=== PATIENT | female | born 1950 | race Caucasian/White ===

== ENCOUNTER 2016-07-19 15:59 | Outpatient (CLI) | payer MEDICARE, OTHER | END 2016-07-19 16:00 | disposition EMS.NT | DX: Z03.89 Encounter for observation for other suspected diseases and conditions ruled out (principal) ==

== ENCOUNTER 2016-09-08 23:24 | Outpatient (CLI) | payer MEDICARE, OTHER | END 2016-09-08 23:25 | disposition critical access hospital (66) | DX: R53.1 Weakness (principal) | CPT/HCPCS: A0425; A0429 ==

== ENCOUNTER 2016-09-08 23:32 | Inpatient (IN) | payer MEDICARE, OTHER ==
--- NOTE | 2016-09-08 23:52 | ED Physician Documentation ---
PD HPI FOCAL NEURO - Stated complaint Stated Complaint: LEG WEAKNESS - Chief complaint Chief Complaint: General - History obtained from History obtained from: Patient, EMS - History of Present Illness Timing - onset: Other (started at about noon today) Timing - duration: Hours (11) Timing - details: Waxing and waning Severity of deficit: Mild Weakness: No: Face, Arm, Hand, Leg, Foot, Right, Left Numbness: No: Face, Arm, Hand, Leg, Foot, Right, Left Associated symptoms: No: Headache, Nausea / vomiting, Seizure, Syncope, Fall, Head injury, Chest pain, Neck pain, Back pain, Fever Baseline status: positive: Cane, Walker Similar symptoms before: Diagnosis (states has had 2 strokes in the past) Recently seen: Not recently seen - Additional information Additional information: Patient and family state that she has had difficulty with speech all day long. Also had difficulty with swallowing earlier today. similar symptoms to prior stroke. Review of Systems Ten Systems: 10 systems reviewed and negative Constitutional: denies: Fever, Chills Throat: denies: Sore throat Cardiac: denies: Chest pain / pressure Respiratory: denies: Cough, Wheezing GI: denies: Abdominal Pain, Nausea, Vomiting, Diarrhea Skin: denies: Rash Musculoskeletal: denies: Neck pain, Back pain Neurologic: denies: Headache PD PAST MEDICAL HISTORY - Past Medical History Past Medical History: Yes Neuro: CVA - Present Medications Home Medications: Ambulatory Orders Medication Instructions Recorded Confirmed Amlodipine Besylate 5 mg ORAL DAILY 09/09/16 09/09/16 Atorvastatin [Lipitor] 80 mg ORAL DAILY 09/09/16 09/09/16 Clopidogrel [Plavix] 75 mg PO ONCE 09/09/16 09/09/16 Fexofenadine HCl 180 mg ORAL DAILY 09/09/16 09/09/16 Fluticasone/Salmeterol [Advair 2 puffs IN BID 09/09/16 09/09/16 250-50 Diskus] Losartan [Cozaar] 100 mg ORAL DAILY 09/09/16 09/09/16 Oxybutynin [Ditropan] 5 mg PO BID 09/09/16 09/09/16 traMADol [Ultram] 50 mg ORAL PRN PRN 09/09/16 09/09/16 - Allergies Allergies/Adverse Reactions: Allergies Allergy/AdvReac Type Severity Reaction Status Date / Time Unable to Assess Allergy Verified 09/08/16 23:43 - Living Situation Living Situation: reports: With family Living Arrangement: reports: At home - Social History Does the pt have substance abuse?: No - Family History Family history: reports: Non contributory PD ED PE NORMAL - Vitals Vital signs reviewed: Yes - General General: Alert and oriented X 3, No acute distress, Well developed/nourished - HEENT HEENT: PERRL, Moist mucous membranes, Pharynx benign - Neck Neck: Supple, no meningeal sign - Cardiac Cardiac: RRR, Strong equal pulses - Respiratory Respiratory: No respiratory distress, Clear bilaterally - Abdomen Abdomen: Soft, Non tender, Non distended - Back Back: No spinal TTP - Derm Derm: Warm and dry - Extremities Extremities: No edema - Neuro Neuro: Alert and oriented X 3, home based assistant 2-12 intact, No motor deficit, No sensory deficit, Normal speech - Psych Psych: Normal mood, Normal affect NIHSS - Time Time: 23:40 - Level of Consciousness Level of consciousness: (0) Alert, Keenly responsive LOC Questions: (0) Answers both Q's correct LOC Commands: (0) Performs both correctly - Gaze Best Gaze: (0) Normal - Visual Visual: (0) No loss - Facial Palsy Facial Palsy: (0) Normal, symmetrical movement - Motor Arms (both separate) Motor Arm (right): (0) No drift Motor Arm (left): (0) No drift - Motor Legs (both separate) Motor Leg (right): (0) No drift Motor Leg (left): (0) No drift - Limb Ataxia Limb Ataxia: (0) Absent - Sensory Sensory: (0) Normal - Best Language Best Language: (0) No aphasia - Dysarthria Dysarthria: (0) Normal - Extinction and Inattention (formally neg Extinction and inattention: (0) No abnormality - Total Score/Results Total Score/Result: 0 Results - Vitals Vitals: Vital Signs - 24 hr 09/08/16 09/09/16 23:39 01:03 Temperature 36.3 C L Heart Rate 76 70 Respiratory 20 18 Rate Blood Pressure 157/80 H 117/61 O2 Saturation 96 95 Oxygen O2 Source Room air - EKG (time done) 2357 Rate: Rate (enter#) (75) Rhythm: NSR [place]: Normal Ischemia: Normal ST segments, Q waves (V1-2) Computer interpretation: Agree with computer - Labs Labs: Laboratory Tests 09/09/16 09/09/16 09/09/16 00:31 00:31 00:45 WBC 9.3 RBC 4.91 Hgb 13.7 Hct 41.5 MCV 84.4 MCH 28.0 MCHC 33.1 RDW 16.4 H Plt Count 208 MPV 8.3 Neut # 6.3 Lymph # 1.4 L [place] # 1.2 H Eos # 0.3 Baso # 0.1 Absolute Nucleated RBC 0.00 Nucleated RBCs 0.0 Sodium 135 Potassium 4.1 Chloride 96 L Carbon Dioxide 29 Anion Gap 10.0 BUN 26 H Creatinine 2.1 H Estimated GFR (MDRD) 23 L Glucose 115 H Calcium 9.0 Total Bilirubin 0.5 AST 43 H ALT 33 Alkaline Phosphatase 101 Total Protein 7.5 Albumin 3.7 Globulin 3.8 Albumin/Globulin Ratio 1.0 Lipase 17 L Urine Color YELLOW Urine Clarity SL. CLOUDY Urine pH 5.0 Ur Specific [place] >=1.030 H Urine Protein TRACE Urine Glucose (UA) NEGATIVE Urine Ketones TRACE Urine Occult Blood LARGE H Urine Nitrite NEGATIVE Urine Bilirubin NEGATIVE Urine Urobilinogen 2 H Ur Leukocyte Esterase TRACE H Urine RBC 0-5 Urine WBC 6-10 H Ur Squamous Epith Cells RARE Squamous Urine Bacteria Moderate H Urine Casts 6-10 Hyaline Casts Ur Microscopic Review INDICATED Urine Culture Comments INDICATED - Rads (name of study) head CT Radiology: Prelim report reviewed, EMP read contemporaneously, See rad report ( Old infarcts involving the right basal ganglia, right anterior thalamus and genu of the right internal capsule. No acute intracranial process identified) PD MEDICAL DECISION MAKING - ED course Complexity details: reviewed results, re-evaluated patient, considered differential, d/w patient, d/w family ED course: Patient is a 66-year-old female who presents to the emergency department with recurrent stroke symptoms. Possible that this is related to her urinary tract infection and acute renal insufficiency. Given IV fluids and IV antibiotics. We will place the patient in observation with the hospitalist for further evaluation and care. Will likely need a recurrent stroke workup as well. Discussed the case with Dr. Rivers, hospitalist who accepts. This document was made in part using voice recognition software. While efforts are made to proofread this document, sound alike and grammatical errors may occur. Departure - Departure Disposition: ED Place in Observation Clinical Impression: Stroke Qualifiers: CVA mechanism: unspecified Qualified Code(s): I63.9 - Cerebral infarction, unspecified UTI (urinary tract infection) Qualifiers: Urinary tract infection type: acute cystitis Hematuria presence: without hematuria Qualified Code(s): N30.00 - Acute cystitis without hematuria Acute renal failure Qualifiers: Acute renal failure type: unspecified Qualified Code(s): N17.9 - Acute kidney failure, unspecified Condition: Stable
--- NOTE | 2016-09-09 00:17 | CT Preliminary Report ---
Exam: CT Head W/O Impression: Old infarcts involving the right basal ganglia, right anterior thalamus and genu of the right interna l capsule. No acute intracranial process identified. [facility] SITE ID: [id number]
--- NOTE | 2016-09-09 00:19 | CT Report ---
EXAM: CT HEAD EXAM DATE: 09/09/2016 12:08 AM. CLINICAL HISTORY: Aphasia COMPARISON: 04/11/2010. TECHNIQUE: Multiaxial CT images were obtained from the foramen magnum to the vertex. IV contrast: Non e. Reformats: Coronal. In accordance with CT protocol optimization, one or more of the following dose reduction techniques w ere utilized for this exam: automated exposure control, adjustment of mA and/or KV based on patient s ize, or use of iterative reconstructive technique. FINDINGS: Old lacunar infarct involves the right anterior thalamus and genu of the internal capsule. Old small infarct right putamen. Findings are new since 2009. Prominent nonspecific white matter hypodensity, likely small vessel ischemia. No hemorrhage, extracerebral fluid collection or hydrocephalus. No CT evidence of recent infarct. Skull base and bone windows are unremarkable. Impression: Old infarcts involving the right basal ganglia, right anterior thalamus and genu of the right interna l capsule. No acute intracranial process identified. [facility] Referring Provider Line: [phone] SITE ID: [id number]
[2016-09-09 00:37] LABS: BASOPHILS # (AUTO) 0.1 10^3/uL (0.0-0.1); BASOPHILS % (AUTO) 0.6 %; EOSINOPHILS # (AUTO) 0.3 10^3/uL (0.0-0.7); EOSINOPHILS % (AUTO) 3.5 %; HCT - HEMATOCRIT 41.5 % (37.0-47.0); HGB - HEMOGLOBIN 13.7 g/dL (12.0-16.0); LYMPHOCYTES # (AUTO) 1.4 10^3/uL (1.5-3.5); LYMPHOCYTES % (AUTO) 15.3 %; MEAN CORPUSCULAR HGB CONC 33.1 g/dL (32.0-36.0); MEAN CORPUSCULAR VOLUME 84.4 fL (81.0-99.0); MEAN PLATELET VOLUME 8.3 fL (7.9-10.8); MONOCYTES # (AUTO) 1.2 10^3/uL (0.0-1.0); MONOCYTES % (AUTO) 12.7 %; NEUTROPHILS # (AUTO) 6.3 10^3/uL (1.5-6.6); NEUTROPHILS % (AUTO) 67.9 %; RED BLOOD COUNT 4.91 10^6/uL (4.20-5.40); RED CELL DISTRIBUTION WIDTH 16.4 % (12.0-15.0); UNCORRECTED WHITE BLOOD COUNT 9.3 x10^3/uL; WHITE BLOOD COUNT 9.3 x10^3/uL (4.8-10.8)
[2016-09-09 00:49] LABS: BILIRUBIN,TOTAL 0.5 mg/dL (0.2-1.0); CREATININE 2.1 mg/dL (0.4-1.0); POTASSIUM 4.1 mmol/L (3.5-5.0); TOTAL PROTEIN 7.5 g/dL (6.7-8.2)
[2016-09-09] MEDS ORDERED: SODIUM CHLORIDE 0.9% 1,000 ML IV ONE ×2 (00:56)
[2016-09-09 01:03] LABS: BILIRUBIN,URINE NEGATIVE (NEGATIVE); UA w/ MICROSCOPIC CHARGE YES
[2016-09-09 01:04] LABS: UR CULTURE IF IND INDICATED
[2016-09-09] MEDS ORDERED: cefTRIAXone 1 GM in SODIUM CHLORIDE 0.9% MINIBAG 100 ML IV STA (01:23)
[2016-09-09] MEDS ORDERED: cefTRIAXone 1 GM VIAL ONE (01:41)
[2016-09-09] MEDS ORDERED: SODIUM CHLORIDE FLUSH 0.9% 10 ML SYRINGE IVP PRN (01:43)
[2016-09-09] MEDS ORDERED: ACETAMINOPHEN 325 MG TABLET PO PRN (01:43)
[2016-09-09] MEDS ORDERED: traMADol 50 MG TABLET PO PRN (01:52)
[2016-09-09] MEDS ORDERED: CLOPIDOGREL 75 MG TABLET PO SCH (02:00)
[2016-09-09] MEDS ORDERED: SALMETEROL IN SCH (02:00)
[2016-09-09] MEDS ORDERED: FLUTICASONE IN SCH (02:00)
--- NOTE | 2016-09-09 03:48 | Ultrasound Preliminary Report ---
Exam: US Carotid Doppler Complete IMPRESSION: 1. Mild bilateral carotid plaquing with no definite stenosis. Images are significantly degraded due t o body habitus and motion artifact. Validated velocity measurements with angiographic measurements and velocity criteria are extrapolated from diameter data as defined by the Society of Radiologists in Ultrasound Consensus Conference Radi ology 2003; 229;340-346. [facility] SITE ID: [id number]
[2016-09-09] MEDS: SODIUM CHLORIDE 0.9% 1,000 ML IV SCH ×2 (03:58→14:13)
[2016-09-09] MEDS: HEPARIN 5,000 UNIT/ML VIAL SUBQ SCH ×3 (03:58→20:33)
--- NOTE | 2016-09-09 04:03 | Ultrasound Report ---
EXAM: CAROTID DOPPLER ULTRASOUND EXAM DATE: 09/09/2016 03:37 AM. CLINICAL HISTORY: CVA. Hypertension and elevated cholesterol. COMPARISON: 04/11/2010. TECHNIQUE: Real-time sonographic vascular imaging was performed by the doctor of audiology through the JW Playerti d arterial system with a linear transducer utilizing color-flow, Doppler flow and spectral analysis. Multiple loss prevention representative static images were saved for review. FINDINGS: Images are degraded due to body habitus and motion artifact. There is mild bilateral carotid plaquing . No hemodynamically significant stenosis is seen. Antegrade flow is seen in both vertebral arteries. Right: RCCA Prox: PSV 70.9 cm/sec. RCCA Dist: PSV 79.0 cm/sec, EDV 11.8 cm/sec. RECA: PSV 34.2 cm/sec. R Bulb: PSV 64 cm/sec, EDV 25.2 cm/sec, ICA/CCA ratio 1.2. KRISTI Prox: PSV 80.1 cm/sec, EDV 23.5 cm/sec, ICA/CCA ratio 1.0. KRISTI Mid: PSV 63.9 cm/sec, EDV 8.9 cm/sec, ICA/CCA ratio 0.8. KRISTI Dist: PSV 71.7 cm/sec, EDV 19.0 cm/sec, ICA/CCA ratio 0.9. RVA: PSV 66 cm/sec. RVA flow direction: Antegrade. Left: LCCA Prox: PSV 77.3 cm/sec. LCCA Dist: PSV 105.3 cm/sec, EDV 20.2 cm/sec. LECA: PSV 71.8 cm/sec. L Bulb: PSV 96 cm/sec, EDV 20.3 cm/sec, ICA/CCA ratio 0.9. LICA Prox: PSV 65.6 cm/sec, EDV 7.7 cm/sec, ICA/CCA ratio 0.6. LICA Mid: PSV 67.2 cm/sec, EDV 17 cm/sec, ICA/CCA ratio 0.6. LICA Dist: PSV 45.5 cm/sec, EDV 19.3 cm/sec, ICA/CCA ratio 0.4. LVA: PSV 42 cm/sec. LVA flow direction: Antegrade. Other: None. IMPRESSION: 1. Mild bilateral carotid plaquing with no definite stenosis. Images are significantly degraded due t o body habitus and motion artifact. Validated velocity measurements with angiographic measurements and velocity criteria are extrapolated from diameter data as defined by the Society of Radiologists in Ultrasound Consensus Conference Radi ology 2003; 229;340-346. [facility] Referring Provider Line: [phone] SITE ID: [id number]
--- NOTE | 2016-09-09 04:32 | HISTORY & PHYSICAL EXAMINATION ---
DATE OF ADMISSION: 09/09/2016 PRIMARY CARE PROVIDER: Dr. Cy Abdalla. CHIEF COMPLAINT: Slurred speech, word finding difficulties. HISTORY OF PRESENT ILLNESS: This is a 66-year-old female, who lives with her , who has had pre vious strokes in the past in 2009, 01/2015. The last one she had an expressive aphasia with it. Accor ding to daughter and the patient, she completely recovered from this and today woke up with having so me problems with slurred speech, feeling some generalized weakness along with some word finding diffi culties. Is still present when I am examining the patient. She also was found to have a urinary tract infection and acute renal failure with GFR being 23, BUN 26, creatinine 2.1. In looking at her past record, previous GFR in 03/2016 was 71. The patient does not recall any change in medications. Of not e, she has been on Plavix 75 mg p.o. daily. EKG in the emergency room is sinus at a rate of 75, poor R-wave progression across the precordium is noted. CT of head without contrast reveals old infarcts i nvolving the right basal ganglia, right anterior thalamic, and genu of the right internal capsule. No acute intracranial process identified today. PAST MEDICAL HISTORY: History of CVA x2 in 2009 and 01/2015, history of hypertension, remote history of smoking, quit in 1968, history of bilateral total knee replacements, history of asthma, history of allergies, history of hyperlipidemia. MEDICATIONS UPON ADMISSION 1. Amlodipine 5 mg p.o. daily. 2. Atorvastatin 80 mg p.o. daily. 3. Plavix 75 mg p.o. daily. 4. Fexofenadine 180 mg p.o. daily. 5. Advair 250/50 two puffs inhaled b.i.d. 6. Cozaar 100 mg p.o. daily. 7. Oxybutynin 5 mg p.o. b.i.d. 8. Tramadol 50 mg p.o. q.6h. p.r.n. pain. ALLERGIES: NO KNOWN DRUG ALLERGIES. SOCIAL HISTORY: Lives with . Smoking, quit in 1968. Alcohol, 3-4 drinks per month. FAMILY MEDICAL HISTORY: Mother with a history of colon cancer, father with a history of cancer, but s he is not sure of the type. REVIEW OF SYSTEMS: Denies any fevers, chills. Denies chest pain. Denies any shortness of breath. Bandar es alteration in any nausea or vomiting. Denies alteration in bowel movements. All other review of sy stems are reviewed and are negative except for as in HPI. PHYSICAL EXAMINATION VITAL SIGNS: Reveals temperature is afebrile, heart rate 70, blood pressure 117/61, respiratory rate 18, room air saturation 95%. CONSTITUTIONAL: Elderly woman in no acute distress. HEAD: Normocephalic, atraumatic. EYES: PERRLA-DC, EOMI. MOUTH: No lesions. NECK: No adenopathy. Carotids 2+/4 without bruits. CHEST: Clear to auscultation. COR: Regular rate and rhythm, S1, S2. ABDOMEN: Soft, nontender. Bowel sounds present. EXTREMITIES: No pedal edema. SKIN: No rashes. PSYCHIATRIC: Mood and affect are appropriate. NEUROLOGIC: She is alert and oriented x3. She does have some dysarthria and expressive aphasia noted on exam. Motor strength is intact bilaterally. LABORATORY: As above. Also to include sodium of 135, potassium 4.1, chloride 96, bicarbonate 29, BUN 26, creatinine 2.1, calculated GFR 23, glucose 115, calcium 9.0, total bilirubin 0.5, AST 43, ALT 33, alkaline phosphatase 101, total protein 7.5, albumin 3.7, lipase 17. Urine reveals specific gravity greater than or equal to 1.030, trace protein, large occult blood, trace leukocyte esterase, negative nitrite, 0-5 RBCs, 6-10 WBCs, rare squamous epithelial cells, moderate bacteria, 6-10 hyaline casts. White count 9.3, hematocrit 41.5, MCV 84.4, platelets 208. Neutrophils 6.3. ASSESSMENT AND PLAN 1. Expressive aphasia with dysarthria, acute present on admission. Suspect new cerebrovascular accide nt (CVA). Recommend MRI, not able to get tomorrow, possibly the following day or as outpatient. Check carotid duplex. Will also proceed with echocardiogram with bubble study. Will add ASA 81 mg to her P lavix 75 mg p.o. daily. Continue with her statin therapy. 2. Urinary tract infection, acute, present on admission. Rocephin 2 grams IV daily and await cultures and sensitivities. 3. Acute renal failure, present on admission. We will give IV fluid hydration and we will check renal ultrasound to further evaluate and may be related to acute urinary tract infection. We will go ahead and hold her oxybutynin and hold her losartan. 4. Hyperlipidemia. Continue with atorvastatin. 5. Deep vein thrombosis prophylaxis. We will place on subcutaneous heparin 5000 units b.i.d., which i s renally adjusted. 6. Code status. The patient is FULL CODE. TIME SPENT: 60 minutes. 02:9:00 JOB #: [id number] EXT JOB #:[id number]
[2016-09-09] MEDS: SODIUM CHLORIDE FLUSH 0.9% 10 ML SYRINGE IVP SCH ×3 (05:20→20:34)
[2016-09-09 06:06] LABS: BASOPHILS # (AUTO) 0.1 10^3/uL (0.0-0.1); EOSINOPHILS # (AUTO) 0.2 10^3/uL (0.0-0.7); EOSINOPHILS % (AUTO) 2.6 %; HCT - HEMATOCRIT 39.9 % (37.0-47.0); HGB - HEMOGLOBIN 13.1 g/dL (12.0-16.0); LYMPHOCYTES # (AUTO) 1.8 10^3/uL (1.5-3.5); LYMPHOCYTES % (AUTO) 20.3 %; MEAN CORPUSCULAR HEMOGLOBIN 27.9 pg (27.0-31.0); MEAN CORPUSCULAR HGB CONC 32.8 g/dL (32.0-36.0); MEAN PLATELET VOLUME 8.5 fL (7.9-10.8); MONOCYTES % (AUTO) 11.5 %; NEUTROPHILS # (AUTO) 5.7 10^3/uL (1.5-6.6); NEUTROPHILS % (AUTO) 64.6 %; RED CELL DISTRIBUTION WIDTH 16.3 % (12.0-15.0); UNCORRECTED WHITE BLOOD COUNT 8.9 x10^3/uL; WHITE BLOOD COUNT 8.9 x10^3/uL (4.8-10.8)
[2016-09-09 06:34] LABS: ALBUMIN/GLOBULIN RATIO 0.9 (1.0-2.2); BILIRUBIN,TOTAL 0.6 mg/dL (0.2-1.0); CALCIUM 8.7 mg/dL (8.5-10.3); CREATININE 1.7 mg/dL (0.4-1.0); POTASSIUM 4.1 mmol/L (3.5-5.0)
[2016-09-09] MEDS ORDERED: FLUTICASONE/SALMETEROL 250/50 INHALER INH SCH (07:00)
[2016-09-09] MEDS: FORMOTEROL FUMARATE NEB 20 MCG/2 ML INH SCH ×2 (08:31→21:09)
[2016-09-09] MEDS: BUDESONIDE 0.5 MG/2 ML NEB INH SCH ×2 (08:31→21:09)
--- NOTE | 2016-09-09 08:46 | Ultrasound Report ---
EXAM: RENAL ULTRASOUND EXAM DATE: 09/09/2016 08:18 AM. CLINICAL HISTORY: Acute renal failure. COMPARISON: None. TECHNIQUE: Real-time scanning was performed with static images obtained. FINDINGS: Right Kidney: 10.9 x 5.3 x 5.5 cm. Normal echotexture with no stones, contour-deforming masses, or hy dronephrosis. Left Kidney: 10.5 x 5.5 x 5.2 cm. Normal echotexture with no stones, contour-deforming masses, or hyd ronephrosis. Bladder: Left ureteral jet is seen. Right ureteral jet is not seen. The prevoid bladder volume was 30 0.1 cc. No post void residual was obtained. IMPRESSION: 1. Renal echotexture within normal limits. 2. No hydronephrosis. [facility] Referring Provider Line: [phone] SITE ID: [id number]
[2016-09-09] MEDS ORDERED: ATORVASTATIN 40 MG TABLET PO SCH (09:00)
[2016-09-09] MEDS ORDERED: LOSARTAN 50 MG TABLET PO SCH (09:00)
[2016-09-09] MEDS ORDERED: cefTRIAXone 2 GM in SODIUM CHLORIDE 0.9% MINIBAG 100 ML IV SCH (09:00)
[2016-09-09] MEDS: CLOPIDOGREL 75 MG TABLET PO SCH (11:18)
[2016-09-09] MEDS: amLODIPine 5 MG TABLET PO SCH (11:18)
[2016-09-09] MEDS: ASPIRIN CHEW 81 MG TABLET PO SCH (11:18)
[2016-09-09] MEDS: MULTIVITAMIN TABLET PO SCH (11:18)
[2016-09-09] MEDS: OMEGA-3 ACID ETHYL ESTERS 1 GM CAPSULE PO SCH (11:19)
[2016-09-09] MEDS: traMADol 50 MG TABLET PO SCH ×2 (11:19→20:32)
[2016-09-09] MEDS: FEXOFENADINE 60 MG TABLET PO SCH (11:19)
[2016-09-09] MEDS: POLYETHYLENE GLYCOL 3350 17 GM PACKET PO SCH (11:19)
[2016-09-09 11:33] LABS: PT - PROTHROMBIN TIME 11.6 secs (9.9-12.6)
[2016-09-09 11:40] LABS: PARTIAL THROMBOPLASTIN TIME 26.2 secs (24.9-33.3)
[2016-09-09 11:41] LABS: HEMOGLOBIN A1C 0.57 g/dL
[2016-09-09 11:43] LABS: CHOL/HDL RATIO 3.1 (<4.4); CHOLESTEROL 132 mg/dL; HDL CHOLESTEROL 42 mg/dL; LDL/HDL RATIO 1.7 (<4.4); TRIGLYCERIDES 102 mg/dL; VLDL CHOLESTEROL 20 mg/dL
--- NOTE | 2016-09-09 13:20 | PROVIDER PROGRESS NOTE ---
Assessment/Plan - Problem List (1) Acute kidney injury superimposed on chronic kidney disease Assessment/Plan: acute. continue to monitor kidney function. IVF for gentle hydration. avoid nephrotoxic medications. continue to monitor kidney function with daily lab draws. ultrasound negative for obstruction and hydronephrosis. dietary counseling recommended for nutrition deficits (2) Morbid obesity with BMI of 50.0-59.9, adult Assessment/Plan: chronic. encourage diet with low calorie and low fat. encourage ambulation and exercise. Thyroid panel checked. (3) Excessive consumption of soda pop Assessment/Plan: chronic. Probably contributing to the acute kidney injury and dehydration. patient was counseled on more water intake and less carbohydrates and no soda (4) Low serum magnesium level Assessment/Plan: acute. replace magnesium with magnesium sulfate IV and morning blood draw to check level. (5) Elevated C-reactive protein (CRP) Assessment/Plan: acute. patient with significant inflammation. encourage low inflammatory diet and weight loss. monitor thyroid levels and cortisol level. - Current Meds Current Meds: Current Medications Generic Name Dose Route Start Last Admin Trade Name David PRN Reason Stop Dose Admin Amlodipine Besylate 5 mg 09/09/16 09:00 09/09/16 11:18 Norvasc PO 5 mg DAILY EILEEN Administration Aspirin 81 mg 09/09/16 09:00 09/09/16 11:18 St Sly Aspirin PO 81 mg DAILY EILEEN Administration Atorvastatin Calcium 80 mg 09/09/16 09:00 09/09/16 11:18 Lipitor PO 80 mg DAILY EILEEN Administration Budesonide 0.5 mg 09/09/16 07:00 09/09/16 08:31 Pulmicort INH 0.5 mg RTBID EILEEN Administration Clopidogrel Bisulfate 75 mg 09/09/16 09:00 09/09/16 11:18 Plavix PO 75 mg DAILY EILEEN Administration Fexofenadine HCl 60 mg 09/09/16 09:00 09/09/16 11:19 Tonya PO 60 mg DAILY EILEEN Administration Formoterol Fumarate 20 mcg 09/09/16 07:00 09/09/16 08:31 Perforomist INH 20 mcg RTBID EILEEN Administration Heparin Sodium (Porcine) 5,000 unit 09/09/16 02:00 09/09/16 11:11 SUBQ 5,000 unit BID EILEEN Administration Sodium Chloride 1,000 mls @ 100 mls/hr 09/09/16 02:00 09/09/16 03:58 Normal Saline 0.9% IV 100 mls/hr .Q10H EILEEN Administration Ceftriaxone Sodium 2 gm/ 100 mls @ 200 mls/hr 09/09/16 09:00 09/09/16 11:05 Sodium Chloride IV 200 mls/hr DAILY EILEEN Administration Multivitamins 1 tab 09/09/16 08:00 09/09/16 11:18 Theragran PO 1 tab DAILYWM EILEEN Administration Kxcrq-5-Reel Ethyl Esters 1 gm 09/09/16 09:00 09/09/16 11:19 Lovaza PO 1 gm DAILY EILEEN Administration Polyethylene Glycol 17 gm 09/09/16 09:00 09/09/16 11:19 Miralax PO Not Given DAILY EILEEN Sodium Chloride 10 ml 09/09/16 06:00 09/09/16 05:20 Normal Saline Flush 0.9% IVP Not Given Q8HR EILEEN Tramadol HCl 100 mg 09/09/16 09:00 09/09/16 11:19 Ultram PO 100 mg BID EILEEN Administration - Lab Result Lab results reviewed: Yes Fish Bone Diagrams: 09/09/16 05:55 09/09/16 05:55 Other Lab Results: Abnormal Lab Results 09/09/16 09/09/16 09/09/16 00:31 00:31 00:45 RDW 16.4 % H % (12.0-15.0) Lymph # 1.4 10^3/uL L 10^3/uL (1.5-3.5) [place] # 1.2 10^3/uL H 10^3/uL (0.0-1.0) Chloride 96 mmol/L L mmol/L (101-111) BUN 26 mg/dL H mg/dL (6-20) Creatinine 2.1 mg/dL H mg/dL (0.4-1.0) Estimated GFR (MDRD) 23 L (>89) Glucose 115 mg/dL H mg/dL (70-100) Estim Average Glucose AST 43 IU/L H IU/L (10-42) C-Reactive Protein Albumin/Globulin Ratio HDL Cholesterol Lipase 17 U/L L U/L (22-51) Ur Specific [place] >=1.030 H (1.002-1.030) Urine Occult Blood LARGE H (NEGATIVE) Urine Urobilinogen 2 E.U./dL H E.U./dL (NORMAL) Ur Leukocyte Esterase TRACE H (NEGATIVE) Urine WBC 6-10 /HPF H /HPF (0-5) Urine Bacteria Moderate /HPF H /HPF (None Seen) 09/09/16 09/09/16 09/09/16 05:55 05:55 11:00 RDW 16.3 % H % (12.0-15.0) Lymph # [place] # Chloride BUN 24 mg/dL H mg/dL (6-20) Creatinine 1.7 mg/dL H mg/dL (0.4-1.0) Estimated GFR (MDRD) 30 L (>89) Glucose 109 mg/dL H mg/dL (70-100) Estim Average Glucose AST C-Reactive Protein 4.5 mg/dL H mg/dL (0-1.0) Albumin/Globulin Ratio 0.9 L (1.0-2.2) HDL Cholesterol 42 mg/dL L mg/dL (60 - ) Lipase Ur Specific [place] Urine Occult Blood Urine Urobilinogen Ur Leukocyte Esterase Urine WBC Urine Bacteria 09/09/16 11:00 RDW Lymph # [place] # Chloride BUN Creatinine Estimated GFR (MDRD) Glucose Estim Average Glucose 126 H (70-100) AST C-Reactive Protein Albumin/Globulin Ratio HDL Cholesterol Lipase Ur Specific [place] Urine Occult Blood Urine Urobilinogen Ur Leukocyte Esterase Urine WBC Urine Bacteria - EKG Results EKG Interpreted Independently: No EKG Comparison: Unchanged from prior EKG - Diagnostic Imaging Results Diagnostic Imaging Results: positive: Prelim report reviewed Diagnostic Imaging Results Comments: ultrasound of kidney was negative for obstruction of hydronephrosis. - Additional Planning Condition/Complexity: Stable My Orders: My Active Orders 09/09/16 07:19 Urinalysis w/ Micro, Reflex Cult If [UA w/ MICROSCOPIC, CULT IF] [URIN] Stat 09/09/16 08:00 Multivitamin [Theragran] 1 tab PO DAILYWM 09/09/16 09:00 [place]-3 Acid Ethyl Esters [Lovaza] 1 gm PO DAILY traMADol [Ultram] 100 mg PO BID 09/09/16 21:00 Niacin [Niaspan] 500 mg PO QPM 09/10/16 05:00 CBC - COMP BLD CT W/AUTO DIFF [HEME] DAILYLAB COMPREHENSIVE METABOLIC PANEL [CHEM] DAILYLAB Consult/Specialty: OT, PT, Other (dietary) Plan Discussed with:: Patient, Family, Spouse, Case Management Time Spent: 31-60 minutes Subjective - Subjective Patient Reports: Resting Comfortably, No Complaints, Back Pain Nursing Reports: No Complaints, Confused (patient is confused per family. weak and not as alert) Objective Vital Signs: Vital Signs - 24 hr 09/09/16 09/09/16 09/09/16 04:54 08:31 08:56 Temperature 36.7 C 36.5 C Heart Rate 70 Heart Rate [ 77 69 Brachial] Heart Rate [ Sitting] Respiratory 18 18 14 Rate Blood Pressure 109/64 136/82 H [Left Radial artery] Blood Pressure [Sitting] O2 Saturation 96 93 O2 Saturation [ Without Activity] 09/09/16 09/09/16 10:10 12:27 Temperature 36.9 C Heart Rate Heart Rate [ 77 Brachial] Heart Rate [ 73 Sitting] Respiratory 14 Rate Blood Pressure 119/82 H [Left Radial artery] Blood Pressure 141/83 H [Sitting] O2 Saturation 93 O2 Saturation [ 94 Without Activity] Oxygen O2 Source [Without Activity] Room air O2 Source Room air I&O (Last 24 Hrs): Intake and Output Totals x24h 09/07/16 09/08/16 09/09/16 23:59 23:59 23:59 Intake Total 577 Balance 577 General: Alert, Oriented x3, Cooperative, No acute distress HEENT: PERRLA Neck: No JVD Neuro: Alert, CN 2-12 Grossly Intact, Oriented Times 3 Cardiovascular: Regular rate (patient will need another 24-48 hours for evaluation and diagnostics. she is high risk for worsening comorbid conditions.) , Normal S1, Normal S2, No murmurs Respiratory: Chest non-tender, No respiratory distress, Other (diminished in bases.) Abdomen: Normal bowel sounds, Other (obese.) Genitourinary: No Discharge, Other (CVA tenderness with palpation) Extremities: No clubbing, No cyanosis Skin: No rashes, No breakdown, No significant lesion Comments/Notes: severe bilateral edema to lower extremities. - Results Results: Laboratory Results WBC 8.9 x10^3/uL (4.8-10.8) 09/09/16 05:55 RBC 4.70 10^6/uL (4.20-5.40) 09/09/16 05:55 Hgb 13.1 g/dL (12.0-16.0) 09/09/16 05:55 Hct 39.9 % (37.0-47.0) 09/09/16 05:55 MCV 85.0 fL (81.0-99.0) 09/09/16 05:55 MCH 27.9 pg (27.0-31.0) 09/09/16 05:55 MCHC 32.8 g/dL (32.0-36.0) 09/09/16 05:55 RDW 16.3 % (12.0-15.0) H 09/09/16 05:55 Plt Count 194 10^3/uL (130-450) 09/09/16 05:55 MPV 8.5 fL (7.9-10.8) 09/09/16 05:55 Neut # 5.7 10^3/uL (1.5-6.6) 09/09/16 05:55 Lymph # 1.8 10^3/uL (1.5-3.5) 09/09/16 05:55 [place] # 1.0 10^3/uL (0.0-1.0) 09/09/16 05:55 Eos # 0.2 10^3/uL (0.0-0.7) 09/09/16 05:55 Baso # 0.1 10^3/uL (0.0-0.1) 09/09/16 05:55 Absolute Nucleated RBC 0.00 x10^3/uL 09/09/16 05:55 Nucleated RBCs 0.0 /100WBC 09/09/16 05:55 PT 11.6 secs (9.9-12.6) 09/09/16 11:00 INR 1.0 (0.8-1.2) 09/09/16 11:00 APTT 26.2 secs (24.9-33.3) 09/09/16 11:00 Sodium 137 mmol/L (135-145) 09/09/16 05:55 Potassium 4.1 mmol/L (3.5-5.0) 09/09/16 05:55 Chloride 101 mmol/L (101-111) 09/09/16 05:55 Carbon Dioxide 28 mmol/L (21-32) 09/09/16 05:55 Anion Gap 8.0 (6-13) 09/09/16 05:55 BUN 24 mg/dL (6-20) H 09/09/16 05:55 Creatinine 1.7 mg/dL (0.4-1.0) H 09/09/16 05:55 Estimated GFR (MDRD) 30 (>89) L 09/09/16 05:55 Glucose 109 mg/dL (70-100) H 09/09/16 05:55 Glycated Hemoglobin 6.0 % (4.6-6.2) 09/09/16 11:00 Estim Average Glucose 126 (70-100) H 09/09/16 11:00 Calcium 8.7 mg/dL (8.5-10.3) 09/09/16 05:55 Total Bilirubin 0.6 mg/dL (0.2-1.0) 09/09/16 05:55 AST 40 IU/L (10-42) 09/09/16 05:55 ALT 30 IU/L (10-60) 09/09/16 05:55 Alkaline Phosphatase 94 IU/L (42-121) 09/09/16 05:55 Troponin I < 0.04 ng/mL (<0.49) 09/09/16 11:00 C-Reactive Protein 4.5 mg/dL (0-1.0) H 09/09/16 11:00 Total Protein 7.0 g/dL (6.7-8.2) 09/09/16 05:55 Albumin 3.4 g/dL (3.2-5.5) 09/09/16 05:55 Globulin 3.6 g/dL (2.1-4.2) 09/09/16 05:55 Albumin/Globulin Ratio 0.9 (1.0-2.2) L 09/09/16 05:55 Triglycerides 102 mg/dL (-149) 09/09/16 11:00 Cholesterol 132 mg/dL (-199) 09/09/16 11:00 LDL Cholesterol, Calc 70 mg/dL (-129) 09/09/16 11:00 VLDL Cholesterol 20 mg/dL 09/09/16 11:00 HDL Cholesterol 42 mg/dL (60-) L 09/09/16 11:00 LDL/HDL Ratio 1.7 (<4.4) 09/09/16 11:00 Cholesterol/HDL Ratio 3.1 (<4.4) 09/09/16 11:00 Lipase 17 U/L (22-51) L 09/09/16 00:31 Urine Color YELLOW 09/09/16 00:45 Urine Clarity SL. CLOUDY (CLEAR) 09/09/16 00:45 Urine pH 5.0 PH (5.0-7.5) 09/09/16 00:45 Ur Specific [place] >=1.030 (1.002-1.030) H 09/09/16 00:45 Urine Protein TRACE mg/dL (NEGATIVE) 09/09/16 00:45 Urine Glucose (UA) NEGATIVE mg/dL (NEGATIVE) 09/09/16 00:45 Urine Ketones TRACE mg/dL (NEGATIVE) 09/09/16 00:45 Urine Occult Blood LARGE (NEGATIVE) H 09/09/16 00:45 Urine Nitrite NEGATIVE (NEGATIVE) 09/09/16 00:45 Urine Bilirubin NEGATIVE (NEGATIVE) 09/09/16 00:45 Urine Urobilinogen 2 E.U./dL (NORMAL) H 09/09/16 00:45 Ur Leukocyte Esterase TRACE (NEGATIVE) H 09/09/16 00:45 Urine RBC 0-5 /HPF (0-5) 09/09/16 00:45 Urine WBC 6-10 /HPF (0-5) H 09/09/16 00:45 Ur Squamous Epith Cells RARE Squamous (<= Few) 09/09/16 00:45 Urine Bacteria Moderate /HPF (None Seen) H 09/09/16 00:45 Urine Casts 6-10 Hyaline Casts /LPF 09/09/16 00:45 Ur Microscopic Review INDICATED 09/09/16 00:45 Urine Culture Comments INDICATED 09/09/16 00:45
[2016-09-09 13:39] LABS: BILIRUBIN,URINE NEGATIVE (NEGATIVE); PH,URINE 5.5 PH (5.0-7.5)
[2016-09-09 13:45] LABS: UR CULTURE IF IND NOT INDICATED
[2016-09-09 14:42] LABS: THYROID STIMULATING HORMONE 2.02 uIU/mL (0.34-5.60)
[2016-09-09] MEDS ORDERED: MAGNESIUM SULFATE 2 GRAM 50 ML IV SCH (16:00)
[2016-09-09] MEDS ORDERED: CYANOCOBALAMIN 1,000 MCG/ML VIAL IM SCH (17:11)
[2016-09-09] MEDS: CHOLECALCIFEROL 5,000 UNIT CAPSULE PO SCH ×2 (17:11→20:32)
[2016-09-09] MEDS ORDERED: NIACIN ER 500 MG TABLET PO SCH (21:00)
[2016-09-10] MEDS: SODIUM CHLORIDE 0.9% 1,000 ML IV SCH ×2 (02:09→09:57)
[2016-09-10] MEDS: SODIUM CHLORIDE FLUSH 0.9% 10 ML SYRINGE IVP SCH (05:11)
[2016-09-10 07:17] LABS: BASOPHILS # (AUTO) 0.1 10^3/uL (0.0-0.1); BASOPHILS % (AUTO) 1.5 %; EOSINOPHILS # (AUTO) 0.4 10^3/uL (0.0-0.7); EOSINOPHILS % (AUTO) 6.2 %; HCT - HEMATOCRIT 40.7 % (37.0-47.0); HGB - HEMOGLOBIN 13.6 g/dL (12.0-16.0); LYMPHOCYTES # (AUTO) 1.4 10^3/uL (1.5-3.5); LYMPHOCYTES % (AUTO) 22.5 %; MEAN CORPUSCULAR HEMOGLOBIN 28.3 pg (27.0-31.0); MEAN CORPUSCULAR HGB CONC 33.4 g/dL (32.0-36.0); MEAN CORPUSCULAR VOLUME 84.9 fL (81.0-99.0); MEAN PLATELET VOLUME 8.8 fL (7.9-10.8); MONOCYTES # (AUTO) 0.8 10^3/uL (0.0-1.0); MONOCYTES % (AUTO) 11.9 %; NEUTROPHILS # (AUTO) 3.7 10^3/uL (1.5-6.6); NEUTROPHILS % (AUTO) 57.9 %; NUCLEATED RED BLOOD CELLS AUTO 0.1 /100WBC; RED BLOOD COUNT 4.79 10^6/uL (4.20-5.40); RED CELL DISTRIBUTION WIDTH 16.3 % (12.0-15.0); UNCORRECTED WHITE BLOOD COUNT 6.4 x10^3/uL; WHITE BLOOD COUNT 6.4 x10^3/uL (4.8-10.8)
[2016-09-10 07:26] LABS: ALBUMIN/GLOBULIN RATIO 0.9 (1.0-2.2); BILIRUBIN,TOTAL 0.9 mg/dL (0.2-1.0); CALCIUM 8.9 mg/dL (8.5-10.3); CREATININE 0.8 mg/dL (0.4-1.0); POTASSIUM 4.1 mmol/L (3.5-5.0); TOTAL PROTEIN 7.1 g/dL (6.7-8.2)
--- NOTE | 2016-09-10 07:32 | Discharge Plan ---
Discharge Plan Disposition: Home, Self Care Condition: Good Prescriptions: [place]-3 Acid Ethyl Esters [Lovaza] 1 gm PO DAILY #30 capsule Magnesium Oxide [Mag Ox] 400 mg PO DAILYWM #30 tablet Niacin [Niaspan] 500 mg PO QPM #30 tablet Multivitamin [Theragran] 1 tab PO DAILYWM #30 tablet traMADol [Ultram] 50 mg ORAL QID PRN #60 tablet PRN Reason: Pain Cholecalciferol [Vitamin D3] 5,000 unit PO BID #60 capsule Diet: Diabetic (you are to eat a low carbohydrate diet with NO SODA POP or refine sugars. You should avoid gluten and dairy products to help get inflammation under control.) Activity Restrictions: Activity as Tolerated Shower Restrictions: No Driving Restrictions: No Assistance Devices: Wheelchair, Cane Weight Bearing: Full Weight Instruction Topics: Tramadol tablets, Magnesium Salts capsules or tablets immediate release, Multivitamin with Minerals and Iron formulations oral solid dosage forms, Fish Oil [place]-3 Fatty Acids capsules Rx, Cholecalciferol capsules tablets or chewable dosage forms, Niacin tablets, Hyperglycemia, Diabetes Healthy Meals, Diabetes Carbs, Stroke Sx, TIA, Diabetes Exercise Benefits, ED Transient Ischemic Attack Additional Instructions or Follow Up instructions: Please continue to follow a diet that is low carbohydrate and more proteins. You have a hemoglobin A1C of 6.0. This is on the high or normal and borderline diabetic. Drinking soda pop can aggrevate blood glucose levels and cause fluid retention and swelling in your legs. It also can hurt your kidneys. Avoid soda and drink mostly water, tea or coffee in the day. Get plenty of exercise throughout the day. You need to prop your legs up when you are sitting to avoid more swelling. Get at least 8 hours of sleep a night You will need a sleep study outpatient. Schedule this with your primary care doctor. Your snoring is hurting your heart and you are not getting enough oxygen at night. This also can worsen your memory and dementia. you have been given supplements for magnesium, vitamin D and a multivitamin. These can help your overall health. Your vitamin D and magnesium levels were low at admission. You need to see your primary care doctor within 1 week of discharge. You will need a referral for a drywall taper for a stress test along with a sleep study for snoring and sleep apnea. Take all medications you have been prescribed until seen by your primary care doctor. Follow-Up Care: Dietitian No Smoking: If you smoke, Please STOP! Call for help. Follow-up with: Cy Abdalla MD [Primary Care Provider] -
[2016-09-10] MEDS: BUDESONIDE 0.5 MG/2 ML NEB INH SCH (07:48)
[2016-09-10] MEDS: FORMOTEROL FUMARATE NEB 20 MCG/2 ML INH SCH (07:48)
[2016-09-10 08:23] VITALS: BP 151/87
[2016-09-10] MEDS ORDERED: MAGNESIUM OXIDE 400 MG TABLET PO SCH (09:00)
[2016-09-10] MEDS ORDERED: SENNA 8.6 MG TABLET PO SCH (09:00)
[2016-09-10] MEDS ORDERED: DOCUSATE SODIUM 250 MG CAPSULE PO SCH (09:00)
[2016-09-10] MEDS: traMADol 50 MG TABLET PO SCH (09:56)
[2016-09-10] MEDS: POLYETHYLENE GLYCOL 3350 17 GM PACKET PO SCH (09:56)
[2016-09-10] MEDS: amLODIPine 5 MG TABLET PO SCH (09:57)
[2016-09-10] MEDS: CLOPIDOGREL 75 MG TABLET PO SCH (09:57)
[2016-09-10] MEDS: OMEGA-3 ACID ETHYL ESTERS 1 GM CAPSULE PO SCH (09:57)
[2016-09-10] MEDS: MULTIVITAMIN TABLET PO SCH (09:57)
[2016-09-10] MEDS: FEXOFENADINE 60 MG TABLET PO SCH (09:57)
[2016-09-10] MEDS: ASPIRIN CHEW 81 MG TABLET PO SCH (09:57)
[2016-09-10] MEDS: HEPARIN 5,000 UNIT/ML VIAL SUBQ SCH (09:58)
[2016-09-10] MEDS: CHOLECALCIFEROL 5,000 UNIT CAPSULE PO SCH (09:58)
[2016-09-10] MEDS ORDERED: TOLTERODINE LA 2 MG CAPSULE PO SCH (11:00)
[2016-09-10] MEDS ORDERED: OXYBUTYNIN 5MG TABLET PO SCH (12:00)
--- NOTE | 2016-09-10 12:10 | DISCHARGE SUMMARY ---
DATE OF ADMISSION: 09/08/2016 DATE OF DISCHARGE: 09/10/2016 ADMITTING DIAGNOSES: 1. Acute kidney injury with probable urinary tract infection. 2. Possible cerebral infarction, unspecified. DISCHARGE DIAGNOSES: 1. Acute kidney failure with chronic kidney disease stage III secondary to dehydration, acute and excessive use of soda. 2. Morbid obesity with excessive caloric intake. 3. Acute weakness with history of cerebral infarct, unspecified. 4. Excessive consumption of soda pop. 5. Low serum magnesium level. 6. Elevated C-reactive protein with degenerative joint disease of multiple sites. 7. Hyperglycemia with prediabetic metabolic syndrome with hemoglobin A1c of 6.0. PROCEDURE: Echocardiogram pending results. CONSULTATIONS: PT and OT. HOSPITAL COURSE AND TREATMENT: The patient is a morbidly obese 66-year-old female who presented to the ER with a complaint of bilateral lower extremity weakness and edema. The patient was worked up in the ER and found to have possible urinary source of infection. Family states that she had been altered over the last several days prior to being brought to the ER. The patient has a significant medical history that does include status post CVA, bilateral lower extremity weakness, acute kidney injury, urinary tract infections and hypertension, asthma and hyperlipidemia. The patient was placed on Rocephin and request was made for admission for acute kidney injury with an elevated creatinine clearance with an elevated creatinine of 2.1 with baseline 0.8. Normal GFR for the patient is greater than 60. At the time of admission, she was at 23. The patient was started on IV fluids, normal saline for gentle hydration, her kidney function monitored and medications toxic to the kidney were held. The patient was placed on tramadol for pain for the lower extremities. She was started on Rocephin until urine culture came back. The patient was continued on her Plavix, Lipitor and aspirin for hyperlipidemia and cardiac illness. She was also continued on Norvasc for blood pressure. The patient was given supplements of Bly 3, Theragran and magnesium since magnesium level was noted to be 1.5 admission. The patient had a lipid profile done and she was placed on Bly 3 and continued on Lipitor. Lipid profile showed a total cholesterol of 132. Due to the fatigue, the patient had an evaluation of thyroid which was within normal limits. On the second day of admission, her kidney function resolved with a creatinine of 0.8 on the day of discharge. The patient admitted to hospitalist team that she had been drinking several bottles of sodas throughout the day and family stated that is pretty much all the patient drank and needed to include more water. The patient was counseled on nutrition and types of food she should be eating during the day and also found to be hyperglycemic and counseled on diabetic diet as well. The patient verbally understood these orders that were given to her regarding her diet and blood sugar control. The patient was started on low carbohydrate diet and all soda was removed from the diet. I believe this is what helped with her kidney function at this time. On the day of discharge, the patient's vital signs were stable. Blood sugar was 126 on the day of discharge. Magnesium level stable at 1.9. The patient had no chest pain at the time and no back pain or kidney problems at the time. She was urinating without difficulty, but also is incontinent. She does take Ditropan for this, which was continued at discharge. The patient is to go home with family and followup with primary care provider afterwards. The patient's acute kidney injury resolved quicker than expected so she was able to be discharged home a day early. MEDICATIONS AT TIME OF DISCHARGE: 1. Advair. 2. Amlodipine. 3. Cozaar. 4. Ditropan. 6. Flonase. 7. Plavix. 8. Albuterol sulfate. 9. Lipitor. 10. Magnesium oxide, new prescription. 11. Lovaza Bly 3. 12. Niacin. 13. Aspirin. 14. Multivitamin. 15. Tramadol for pain, new prescription. 16. Vitamin D3, new prescription. PHYSICAL EXAMINATION: CONSTITUTIONAL: The patient was alert, in no acute distress. EYES: Pupils are equal, round and react to light and accommodation. Conjunctivae and sclerae was nonicteric, not injected. ENT: Nares are patent. No nasal discharge. Oropharynx. No masses, exudates or lesions. Mucous membranes are moist. NECK: Supple. No thyromegaly. CARDIOVASCULAR: S1, S2 noted. No gallops, murmurs or rubs. PSYCHIATRIC: Behavior is appropriate. Normal affect, pleasant mood. HEMATOLOGIC: No active bleeding. The patient is hemodynamically stable. LYMPHATICS: No cervical, axillary, supraclavicular lymphadenopathy was noted. GENITOURINARY: No CVA tenderness. No masses palpated. No bladder distention. MUSCULOSKELETAL: The patient has bilateral lower extremity edema, no cyanosis. Pulses were palpable. GASTROINTESTINAL: Abdomen was obese, soft, nontender. Bowel sounds were present. Slight bladder distention. The patient is incontinent. VITAL SIGNS: Temperature is 36.9, blood pressure was 151/87, respirations 20, oxygen saturations 100% on room air, heart rate 64. INSTRUCTIONS FOR DISCHARGE: 1. Activity to be as tolerated. To get up and walk and exercise as much as possible, at least 20 minutes a day is recommended. Take frequent rest breaks as needed. Sleep at least 7-8 hours at night. Melatonin is a great over-the- counter medication to take to help with sleep. 2. Diet. Low carb, low fat, diabetic/cardiac diet is recommended. No sodas and water, tea or coffee throughout the day, mostly water is recommended. Nutrition counseling outpatient was recommended. 3. Followup. The patient verbally understood she is to followup with primary care provider within 1 week of discharge. She also was given information for dietary and nutrition counseling, which she is to followup at an outpatient setting for further nutrition counseling. 4. The patient was to take all home medications as prescribed. She was given prescriptions for vitamin D, multivitamin and Bly 3 supplementation. 5. STATUS: The patient was to remain a full code status 6. The patient verbally understood all instructions given by hospitalist and nursing team. She is to be discharged home safely with family with strict instructions to followup, the patient verbally understood all these instructions that were given. 7. Time spent at discharge was 40 minutes for education, planning and counseling. 8. The patient was able to be discharged home earlier than planned since her kidney function did resolve quicker once diet was evaluated and the patient was placed on a stricter low carbohydrates and no soda diet. JOB #: [id number] EXT JOB #:[id number] [facility]ITAL[facility]
== END 2016-09-10 11:41 | disposition home or self-care (01) | DRG 683 ==
LOC: EDUNIT# → ED 23:32 → SUPCPDRO 23:32 → MS 09-09 01:43 → OBSVTOIN 09-09 12:55 → MS 09-09 13:55
PROVIDERS: ADMIT Specialist; ATTEND Nurse Practitioner
DX: I63.9 Cerebral infarction, unspecified (principal); N30.00 Acute cystitis without hematuria; N17.9 Acute kidney failure, unspecified; N39.0 Urinary tract infection, site not specified; Z68.43 Body mass index [BMI] 50.0-59.9, adult; E86.0 Dehydration; I12.9 Hypertensive chronic kidney disease with stage 1 through stage 4 chronic kidney disease, or unspecified chronic kidney disease; N18.3 Chronic kidney disease, stage 3 (moderate); J45.909 Unspecified asthma, uncomplicated; E78.5 Hyperlipidemia, unspecified; E66.01 Morbid (severe) obesity due to excess calories; E83.42 Hypomagnesemia; E88.81 Metabolic syndrome and other insulin resistance; R73.9 Hyperglycemia, unspecified; R79.82 Elevated C-reactive protein (CRP); R06.83 Snoring; R32 Unspecified urinary incontinence; Z96.653 Presence of artificial knee joint, bilateral; Z79.02 Long term (current) use of antithrombotics/antiplatelets; Z79.51 Long term (current) use of inhaled steroids; Z79.899 Other long term (current) drug therapy; Z87.891 Personal history of nicotine dependence; R53.1 Weakness; Z86.73 Personal history of transient ischemic attack (TIA), and cerebral infarction without residual deficits; M19.90 Unspecified osteoarthritis, unspecified site
CPT/HCPCS: 36415; 51701; 70450; 76770; 80053; 80061; 81001; 81003; 82607; 82652; 83036; 83690; 83735; 84439; 84443; 84481; 84484; 85025; 85610; 85730; 86140; 87077; 87086; 93005; 93010; 93306; 93880; 94640; 96361; 96365; 96374; 96375; 99284; 99285

== ENCOUNTER 2016-11-05 11:17 | Outpatient (CLI) | payer MEDICARE, OTHER | END 2016-11-05 11:18 | disposition home or self-care (01) | LOC: SC 11:17 | PROVIDERS: ATTEND Specialist | DX: R06.83 Snoring (principal); E66.9 Obesity, unspecified | CPT/HCPCS: 99205; G0463; 99212 ==

== ENCOUNTER 2017-01-27 12:54 | Outpatient (CLI) | payer MEDICARE, OTHER | END 2017-01-27 12:55 | disposition short-term general hospital (02) | LOC: EMS 12:54 | PROVIDERS: ATTEND Surgery | DX: M54.2 Cervicalgia (principal) | CPT/HCPCS: A0425; A0429 ==

== ENCOUNTER 2017-05-10 23:16 | Outpatient (CLI) | payer MEDICARE, OTHER | END 2017-05-10 23:17 | disposition EMS.NT | LOC: EMS 23:16 | PROVIDERS: ATTEND Surgery | DX: Z03.89 Encounter for observation for other suspected diseases and conditions ruled out (principal); W01.0XXA Fall on same level from slipping, tripping and stumbling without subsequent striking against object, initial encounter; Y92.009 Unspecified place in unspecified non-institutional (private) residence as the place of occurrence of the external cause ==

== ENCOUNTER 2017-05-18 09:46 | Outpatient (CLI) | payer MEDICARE, OTHER | END 2017-05-18 09:47 | disposition EMS.NT | LOC: EMS 09:46 | PROVIDERS: ATTEND Surgery | DX: Z03.89 Encounter for observation for other suspected diseases and conditions ruled out (principal); W01.0XXA Fall on same level from slipping, tripping and stumbling without subsequent striking against object, initial encounter; Y92.003 Bedroom of unspecified non-institutional (private) residence as the place of occurrence of the external cause ==

== ENCOUNTER 2017-05-27 22:03 | Outpatient (CLI) | payer MEDICARE, OTHER | END 2017-05-27 22:04 | disposition EMS.NT | LOC: EMS 22:03 | PROVIDERS: ATTEND Surgery | DX: Z03.89 Encounter for observation for other suspected diseases and conditions ruled out (principal); W18.39XA Other fall on same level, initial encounter; Y92.009 Unspecified place in unspecified non-institutional (private) residence as the place of occurrence of the external cause ==

== ENCOUNTER 2017-06-08 15:12 | Outpatient (CLI) | payer MEDICARE, OTHER | END 2017-06-08 15:13 | disposition EMS.NT | LOC: EMS 15:12 | PROVIDERS: ATTEND Surgery | DX: Z03.89 Encounter for observation for other suspected diseases and conditions ruled out (principal); W18.39XA Other fall on same level, initial encounter; Y92.003 Bedroom of unspecified non-institutional (private) residence as the place of occurrence of the external cause ==

== ENCOUNTER 2018-03-20 08:44 | Outpatient (CLI) | payer MEDICARE, OTHER | END 2018-03-20 08:45 | disposition EMS.NT | LOC: EMS 08:44 | PROVIDERS: ATTEND Surgery | DX: Z03.89 Encounter for observation for other suspected diseases and conditions ruled out (principal) ==

== ENCOUNTER 2018-07-27 15:46 | Outpatient (CLI) | payer MEDICARE, OTHER | END 2018-07-27 15:47 | disposition short-term general hospital (02) | LOC: EMS 15:46 | PROVIDERS: ATTEND Surgery | DX: M79.605 Pain in left leg (principal); S61.411A Laceration without foreign body of right hand, initial encounter; W18.30XA Fall on same level, unspecified, initial encounter; Y92.002 Bathroom of unspecified non-institutional (private) residence as the place of occurrence of the external cause | CPT/HCPCS: A0425; A0429; A0888 ==

== ENCOUNTER 2019-04-22 11:30 | Outpatient (CLI) | payer MEDICARE, OTHER | END 2019-04-22 23:59 | disposition home or self-care (01) | LOC: LAB.R 11:30 | PROVIDERS: ATTEND Physician Assistant Medical | DX: R05 Cough (principal) | CPT/HCPCS: 87275; 87276 ==

== ENCOUNTER 2020-01-31 10:31 | Outpatient (CLI) | payer MEDICARE, OTHER ==
[2020-01-31 18:12] LABS: BASOPHILS % (AUTO) 0.5 %; EOSINOPHILS # (AUTO) 0.4 10^3/uL (0.0-0.7); EOSINOPHILS % (AUTO) 5.2 %; HGB - HEMOGLOBIN 13.6 g/dL (12.0-16.0); LYMPHOCYTES # (AUTO) 1.5 10^3/uL (1.5-3.5); LYMPHOCYTES % (AUTO) 19.7 %; MEAN CORPUSCULAR HEMOGLOBIN 29.4 pg (27.0-31.0); MEAN CORPUSCULAR HGB CONC 31.2 g/dL (32.0-36.0); MEAN CORPUSCULAR VOLUME 94.2 fL (81.0-99.0); MEAN PLATELET VOLUME 10.8 fL (7.9-10.8); MONOCYTES # (AUTO) 0.8 10^3/uL (0.0-1.0); MONOCYTES % (AUTO) 10.4 %; NEUTROPHILS # (AUTO) 4.8 10^3/uL (1.5-6.6); NEUTROPHILS % (AUTO) 63.2 %; PLT - PLATELET COUNT 208 10^3/uL (130-450); RED BLOOD COUNT 4.63 10^6/uL (4.20-5.40); RED CELL DISTRIBUTION WIDTH 16.1 % (12.0-15.0); WHITE BLOOD COUNT 7.6 x10^3/uL (4.8-10.8)
[2020-01-31 18:53] LABS: ALBUMIN 3.7 g/dL (3.2-5.5); ALBUMIN/GLOBULIN RATIO 0.7 (1.0-2.2); ALKALINE PHOSPHATASE 109 IU/L (42-121); ALT ALANINE AMINOTRANSFERASE 40 IU/L (10-60); AST ASPARTATE AMINOTRANSFERASE 59 IU/L (10-42); BUN - BLOOD UREA NITROGEN 24 mg/dL (6-20); CALCIUM 9.5 mg/dL (8.5-10.3); CARBON DIOXIDE - CO2 27 mmol/L (21-32); CHLORIDE 103 mmol/L (101-111); CHOL/HDL RATIO 3.4 (<4.4); CHOLESTEROL 145 mg/dL; CREATININE 0.8 mg/dL (0.4-1.0); GLUCOSE 112 mg/dL (70-100); HDL CHOLESTEROL 43 mg/dL; LDL CHOLESTEROL,CALCULATED 81 mg/dL; LDL/HDL RATIO 1.9 (<4.4); SODIUM 139 mmol/L (135-145); TOTAL PROTEIN 8.7 g/dL (6.7-8.2); VLDL CHOLESTEROL 21 mg/dL
[2020-01-31 20:02] LABS: HEMOGLOBIN A1c% 5.8 % (4.27-6.07)
== END 2020-01-31 23:59 | disposition home or self-care (01) ==
LOC: LAB.WCP 10:31
PROVIDERS: ATTEND Family Medicine
DX: I10 Essential (primary) hypertension (principal); R73.9 Hyperglycemia, unspecified; E78.5 Hyperlipidemia, unspecified
CPT/HCPCS: 36415; 80053; 80061; 83036; 83721; 84443; 85025

== ENCOUNTER 2020-06-19 07:00 | Outpatient (CLI) | payer MEDICARE, OTHER ==
[2020-06-19 11:54] LABS: ALBUMIN 3.7 g/dL (3.2-5.5); ALBUMIN/GLOBULIN RATIO 0.7 (1.0-2.2); BILIRUBIN,TOTAL 0.6 mg/dL (0.2-1.0); CALCIUM 9.9 mg/dL (8.5-10.3); CREATININE 0.9 mg/dL (0.4-1.0); POTASSIUM 4.2 mmol/L (3.5-5.0); TOTAL PROTEIN 8.8 g/dL (6.7-8.2)
[2020-06-20 12:25] LABS: HEPATITIS A IGM NON-REACTIVE (NON-REACTIVE); HEPATITIS B CORE ANTIBODY IGM NON-REACTIVE (NON-REACTIVE); HEPATITIS B SURFACE ANTIGEN NON-REACTIVE (NON-REACTIVE); HEPATITIS C ANTIBODY NON-REACTIVE (NON-REACTIVE)
== END 2020-06-19 23:59 | disposition home or self-care (01) ==
LOC: LAB.WCP 07:00
PROVIDERS: ATTEND Family Medicine
DX: R79.89 Other specified abnormal findings of blood chemistry (principal)
CPT/HCPCS: 36415; 80053; 80074

== ENCOUNTER 2021-01-08 11:12 | Outpatient (CLI) | payer MEDICARE, OTHER ==
[2021-01-08 17:40] LABS: BASOPHILS % (AUTO) 0.6 %; EOSINOPHILS # (AUTO) 0.3 10^3/uL (0.0-0.7); EOSINOPHILS % (AUTO) 4.1 %; HCT - HEMATOCRIT 42.7 % (37.0-47.0); HGB - HEMOGLOBIN 13.3 g/dL (12.0-16.0); LYMPHOCYTES % (AUTO) 14.9 %; MEAN CORPUSCULAR HEMOGLOBIN 28.6 pg (27.0-31.0); MEAN CORPUSCULAR HGB CONC 31.1 g/dL (32.0-36.0); MEAN CORPUSCULAR VOLUME 91.8 fL (81.0-99.0); MEAN PLATELET VOLUME 10.8 fL (7.9-10.8); MONOCYTES # (AUTO) 0.6 10^3/uL (0.0-1.0); MONOCYTES % (AUTO) 8.1 %; NEUTROPHILS # (AUTO) 4.9 10^3/uL (1.5-6.6); NEUTROPHILS % (AUTO) 71.9 %; PLT - PLATELET COUNT 198 10^3/uL (130-450); RED BLOOD COUNT 4.65 10^6/uL (4.20-5.40); RED CELL DISTRIBUTION WIDTH 16.5 % (12.0-15.0); WHITE BLOOD COUNT 6.8 x10^3/uL (4.8-10.8)
[2021-01-08 18:40] LABS: ALBUMIN 3.7 g/dL (3.2-5.5); ALBUMIN/GLOBULIN RATIO 0.7 (1.0-2.2); CALCIUM 9.2 mg/dL (8.5-10.3); CREATININE 0.9 mg/dL (0.4-1.0); POTASSIUM 4.2 mmol/L (3.5-5.0); TOTAL PROTEIN 8.8 g/dL (6.7-8.2)
[2021-01-08 20:21] LABS: ESTIMATED AVERAGE GLUCOSE 128 mg/dL (70-100); HEMOGLOBIN A1c% 6.1 % (4.27-6.07)
== END 2021-01-08 23:59 | disposition home or self-care (01) ==
LOC: LAB.WCP 11:12
PROVIDERS: ATTEND Family Medicine
DX: R94.5 Abnormal results of liver function studies (principal); R73.01 Impaired fasting glucose; I10 Essential (primary) hypertension
CPT/HCPCS: 36415; 80053; 83036; 85025

== ENCOUNTER 2021-07-25 22:28 | Outpatient (CLI) | payer MEDICARE, OTHER | END 2021-07-25 22:29 | disposition left against medical advice (07) | LOC: EMS 22:28 | DX: Z03.89 Encounter for observation for other suspected diseases and conditions ruled out (principal) ==

== ENCOUNTER 2021-08-27 19:43 | Outpatient (CLI) | payer MEDICARE, OTHER | END 2021-08-27 19:44 | disposition home or self-care (01) | LOC: EMS 19:43 | DX: R07.81 Pleurodynia (principal) ==

== ENCOUNTER 2022-11-12 09:28 | Outpatient (CLI) | payer MEDICARE, OTHER ==
[2022-11-12 12:09] LABS: BASOPHILS % (AUTO) 0.4 %; EOSINOPHILS # (AUTO) 0.3 10^3/uL (0.0-0.7); EOSINOPHILS % (AUTO) 3.7 %; HCT - HEMATOCRIT 43.2 % (37.0-47.0); HGB - HEMOGLOBIN 13.4 g/dL (12.0-16.0); LYMPHOCYTES # (AUTO) 1.5 10^3/uL (1.5-3.5); LYMPHOCYTES % (AUTO) 21.5 %; MEAN CORPUSCULAR HEMOGLOBIN 28.7 pg (27.0-31.0); MEAN CORPUSCULAR VOLUME 92.5 fL (81.0-99.0); MONOCYTES # (AUTO) 0.7 10^3/uL (0.0-1.0); MONOCYTES % (AUTO) 9.8 %; NEUTROPHILS # (AUTO) 4.5 10^3/uL (1.5-6.6); NEUTROPHILS % (AUTO) 64.3 %; PLT - PLATELET COUNT 231 10^3/uL (130-450); RED BLOOD COUNT 4.67 10^6/uL (4.20-5.40); RED CELL DISTRIBUTION WIDTH 15.6 % (12.0-15.0)
[2022-11-12 12:36] LABS: ESTIMATED AVERAGE GLUCOSE 123 mg/dL (70-100); HEMOGLOBIN A1c% 5.9 % (4.27-6.07)
[2022-11-12 12:39] LABS: THYROID STIMULATING HORMONE 1.28 uIU/mL (0.34-5.60)
[2022-11-12 12:40] LABS: ALBUMIN 3.9 g/dL (3.2-5.5); ALBUMIN/GLOBULIN RATIO 0.7 (1.0-2.2); ALKALINE PHOSPHATASE 104 IU/L (42-121); ALT ALANINE AMINOTRANSFERASE 68 IU/L (10-60); AST ASPARTATE AMINOTRANSFERASE 109 IU/L (10-42); BILIRUBIN,TOTAL 0.7 mg/dL (0.2-1.0); BUN - BLOOD UREA NITROGEN 21 mg/dL (6-20); CALCIUM 9.9 mg/dL (8.5-10.3); CARBON DIOXIDE - CO2 26 mmol/L (21-32); CHLORIDE 104 mmol/L (101-111); CHOL/HDL RATIO 3.2 (<4.4); CHOLESTEROL 107 mg/dL; CREATININE 0.9 mg/dL (0.6-1.3); GFR - MDRD 61 (>89); GLUCOSE 113 mg/dL (74-104); HDL CHOLESTEROL 33 mg/dL; LDL CHOLESTEROL,CALCULATED 54 mg/dL; LDL/HDL RATIO 1.6 (<4.4); POTASSIUM 3.8 mmol/L (3.5-4.5); SODIUM 137 mmol/L (135-145); TOTAL PROTEIN 9.4 g/dL (6.4-8.9); TRIGLYCERIDES 99 mg/dL (48-352); VLDL CHOLESTEROL 20 mg/dL
== END 2022-11-12 09:29 | disposition home or self-care (01) ==
LOC: LAB.N 09:28
PROVIDERS: ATTEND Physician Assistant
DX: I10 Essential (primary) hypertension (principal); R73.01 Impaired fasting glucose; E78.5 Hyperlipidemia, unspecified
CPT/HCPCS: 36415; 80053; 80061; 83036; 83721; 84443; 85025

== ENCOUNTER 2023-02-10 17:39 | Outpatient (CLI) | payer MEDICARE, OTHER | END 2023-02-10 23:59 | disposition EMS.NT | LOC: EMS 17:39 | DX: R53.1 Weakness (principal) ==

== ENCOUNTER 2023-02-11 21:28 | Outpatient (CLI) | payer MEDICARE, OTHER | END 2023-02-11 21:29 | disposition short-term general hospital (02) | LOC: EMS 21:28 | DX: M25.562 Pain in left knee (principal); W18.39XA Other fall on same level, initial encounter; Y92.008 Other place in unspecified non-institutional (private) residence as the place of occurrence of the external cause; Z79.01 Long term (current) use of anticoagulants | CPT/HCPCS: A0425; A0429 ==

== ENCOUNTER 2023-02-16 14:04 | Outpatient (CLI) | payer MEDICARE, OTHER | END 2023-02-16 23:59 | disposition short-term general hospital (02) | LOC: EMS 14:04 | DX: M25.552 Pain in left hip (principal) | CPT/HCPCS: A0425; A0427 ==

== ENCOUNTER 2023-02-26 20:35 | Outpatient (CLI) | payer MEDICARE, OTHER | END 2023-02-26 20:36 | disposition critical access hospital (66) | LOC: EMS 20:35 | DX: K59.00 Constipation, unspecified (principal); M54.9 Dorsalgia, unspecified | CPT/HCPCS: A0425; A0429 ==

== ENCOUNTER 2023-02-26 20:58 | Emergency (ER) | payer MEDICARE, OTHER ==
--- NOTE | 2023-02-26 22:10 | ED Physician Documentation ---
History of Present Illness - Stated complaint Stated Complaint: CONSTIPATION - Chief complaint Chief Complaint: Abd Pain - History obtained from History obtained from: Patient, Family (daughter) - Additonal information Additional information: 73yF with pmh cva, normally ambulatory with walker but bedbound the past 2 weeks after covid infection, p/w inability to have BM X 2 weeks. patient passing nor mal flatus. denies abd pain. PD PAST MEDICAL HISTORY - Past Medical History Past Medical History: Yes Cardiovascular: Hypertension, High cholesterol Respiratory: Asthma : Incontinence Musculoskeletal: Chronic back pain - Past Surgical History Past Surgical History: Yes Ortho: Knee replacement - Present Medications Home Medications: Ambulatory Orders Medication Instructions Recorded Confirmed Albuterol Sulfate [Proventil Hfa 2 puffs INH Q4H PRN 09/09/16 09/09/16 Inhaler] Amlodipine Besylate 5 mg ORAL DAILY 09/09/16 09/09/16 Clopidogrel [Plavix] 75 mg PO DAILY 09/09/16 09/09/16 Fexofenadine HCl 180 mg ORAL DAILY 09/09/16 09/09/16 Fluticasone [Flonase] 1 spray DARRION BID 09/09/16 09/09/16 Fluticasone/Salmeterol [Advair 1 puffs IN BID 09/09/16 09/09/16 250-50 Diskus] Losartan [Cozaar] 100 mg ORAL DAILY 09/09/16 09/09/16 Aspirin Chewable [St Sly 81 mg PO DAILY tablet 09/10/16 Aspirin] Atorvastatin [Lipitor] 40 mg ORAL QPM #0 09/10/16 09/09/16 Cholecalciferol [Vitamin D3] 5,000 unit PO BID #60 capsule 09/10/16 Formoterol Fumarate [Perforomist] 20 mcg INH RTBID neb 09/10/16 Magnesium Oxide [Mag Ox] 400 mg PO DAILYWM #30 tablet 09/10/16 Multivitamin [Theragran] 1 tab PO DAILYWM #30 tablet 09/10/16 Niacin [Niaspan] 500 mg PO QPM #30 tablet 09/10/16 [place]-3 Acid Ethyl Esters [Lovaza] 1 gm PO DAILY #30 capsule 09/10/16 Oxybutynin Chloride [Ditropan Xl] 15 mg PO BID #60 tab.er.24 09/10/16 traMADol [Ultram] 50 mg ORAL QID PRN #60 tablet 09/10/16 - Allergies Allergies/Adverse Reactions: Allergies Allergy/AdvReac Type Severity Reaction Status Date / Time chicken derived Allergy Nausea Verified 02/26/23 21:08 - Social History Does the pt smoke?: No Smoking Status: Never smoker Does the pt drink ETOH?: No Does the pt have substance abuse?: No - Immunizations Immunizations are current?: No Immunizations: TDAP >10years/unknown - POLST Patient has POLST: No PD ED PE NORMAL - Vitals Vital signs reviewed: Yes - General General: Alert and oriented X 3, No acute distress, Well developed/nourished - HEENT HEENT: Atraumatic, PERRL, EOMI - Abdomen Abdomen: Non tender, Non distended - Rectal Rectal: Other (large stool burden on MARLI. evacuated large amount of hard brown stool. patient has erythema to perianal area with some mild skin breakdown) Results - Vitals Vitals: Vital Signs - 24 hr 02/26/23 21:05 Temperature 36.7 C Heart Rate 95 Respiratory 20 Rate Blood Pressure 172/107 H O2 Saturation 95 Oxygen O2 Source [Without Activity] Room air O2 Source Room air PD Medical Decision Making - ED course ED course: 73yF presents to the ED with constipation X 2 weeks, resolving s/p MARLI with digital disimpaction. palpable internal hemorrhoids. patient with mild perianal skin breakdown/irritation. advised barrier cream. plan to f/u pcp. patient will continue stool regimen. Departure - Departure Disposition: 01 Home, Self Care Clinical Impression: Constipation Condition: Stable Instructions: ED Constipation Comments: You were seen in the emergency department for constipation. A digital disimpaction was performed to help you have a bowel movement and a large amount of stool came out. Continue taking senna/docusate and miralax daily. Please follow-up with your primary care provider and return to the emergency department if you have any new or worsening symptoms or other concerns.
[2023-02-26 22:23] VITALS: BP 134/93; O2SAT 98
== END 2023-02-26 22:30 | disposition home or self-care (01) ==
LOC: EDUNIT# → ED 20:58
DX: K59.00 Constipation, unspecified (principal); I10 Essential (primary) hypertension; E78.00 Pure hypercholesterolemia, unspecified; Z79.02 Long term (current) use of antithrombotics/antiplatelets; Z79.899 Other long term (current) drug therapy; Z79.82 Long term (current) use of aspirin
CPT/HCPCS: 99282; 99283

== ENCOUNTER 2023-10-02 23:39 | Outpatient (CLI) | payer MEDICARE, OTHER | END 2023-10-02 23:59 | disposition EMS.NT | LOC: EMS 23:39 | DX: Z03.89 Encounter for observation for other suspected diseases and conditions ruled out (principal) ==